=== PATIENT | female | born 1990 | race Caucasian/White ===

== ENCOUNTER 2020-02-05 17:20 | Emergency (ER) | payer SELFPAY ==
[2020-02-05 17:33] VITALS: BP 150/88; PULSE 94; RESP 16; TEMP 37.2; O2SAT 98
--- NOTE | 2020-02-05 17:54 | ED.WOUNDLAC ---
HPI - Wound/Laceration General Chief Complaint: Wound/Laceration Stated Complaint: Cut finger Source: patient History of Present Illness HPI narrative: this is a 29-year-old female that presents with the tip of her thumb laceration more like a flap-type laceration that occurred about 2 to 3 days ago pretty well approximated is up-to-date with her tetanus and is here today because it is mildly gaping although it is currently healing. There is no discharge there is no erythema redness mild tenderness with no erythema and no drainage. No fever or chills. Onset (ago): day(s) Extremity Location: Left: hand ( thumb laceration) Place: home Context: accidental Associated symptoms: none Related Data Home Medications Medication Instructions Recorded Confirmed No Home Medications 02/05/20 02/05/20 Allergies Allergy/AdvReac Type Severity Reaction Status Date / Time No Known Allergies Allergy Verified 02/05/20 17:32 Review of Systems Review of Systems: All systems reviewed & are unremarkable except as noted in HPI and below PMFSH Past Medical History Medical History Patient denies medical problems Exam Const: General: no acute distress HENMT: Head: normal to inspection Eyes: Conjunctivae: conjunctivae normal Pupils: Equal, round and reactive pupils present Chest: Chest palpation & inspection: normal inspection of the chest Resp: Effort & Inspection: normal respiratory effort GI: GI Palp: Yes Soft to palpation Skin: Other: flap type laceration distal end of her left thumb well-approximated Neuro: General: patient oriented x3 and moves all extremities Psych: Mental Status: mental status grossly normal Course Course Emergency Course: applied Dermabond and follow-up with primary care physician Vital Signs Vital signs: Vital Signs Temperature 37.2 C 02/05/20 17:33 Pulse Rate 94 02/05/20 17:33 Respiratory Rate 16 02/05/20 17:33 Blood Pressure 150/88 H 02/05/20 17:33 Pulse Oximetry 98 02/05/20 17:33 Temperature 37.2 C 02/05/20 17:33 Pulse Rate 94 02/05/20 17:33 Respiratory Rate 16 02/05/20 17:33 Blood Pressure 150/88 H 02/05/20 17:33 Pulse Oximetry 98 02/05/20 17:33 Procedures Laceration Laceration 1: Date: 02/05/20 Time: 17:57 Site: upper extremity Side (If applicable): left Size (cm): 2.5 Description: flap Pre-repair: wound explored and irrigated ====== Skin Level ====== Skin layer closed with: dermabond ====== Subcutaneous Layer ====== ====== Muscle Layer ====== ====== Tendon Layer ====== Critical Care Time Critical Care Time Critical Care Time: No Discharge Plan Discharge Clinical Impression: Laceration Patient Disposition: Home, Self-Care Condition: Stable Instructions: Antibiotic Form, Skin Adhesive Care (ED), Laceration (ED) Additional Instructions: follow-up with primary care physician if symptoms persist or worsen. Prescriptions: No Action No Home Medications RF: 0 Follow-up/Referrals: UNKNOWN,DOCTOR [Primary Care Provider] - Time of Disposition: 17:58
== END 2020-02-05 18:09 | disposition home or self-care (01) ==
PROVIDERS: Emergency Provider Emergency Medicine
DX: S61.012A Laceration without foreign body of left thumb without damage to nail, initial encounter (principal); W45.8XXA Other foreign body or object entering through skin, initial encounter
CPT/HCPCS: 12001; 99282

== ENCOUNTER 2020-07-30 02:35 | Emergency (ER) | payer BC, SELFPAY ==
--- NOTE | ~2020-07-30 | XR_ITS ---
EXAMINATION: XR chest 2V DATE: 07/30/2020 03:21 INDICATION: Left mid chest pain. TECHNIQUE: frontal and lateral views of the chest were obtained. COMPARISON: None FINDINGS: The lungs are clear with no focal airspace opacities, pulmonary edema, pleural effusion or pneumothor ax. The cardiomediastinal silhouette is normal. Mild thoracic spondylosis. IMPRESSION: 1. No acute cardiopulmonary disease. Reviewed, dictated and finalized at location A.
[2020-07-30 02:35] VITALS: BP 161/103; PULSE 96; RESP 20; TEMP 36.7; O2SAT 100
--- NOTE | 2020-07-30 02:54 | ECG_ITS ---
Measurements Intervals [place] Rate: 100 P: 66 MD: 135 QRS: 15 QRSD: 94 T: 22 QT: 337 QTc: 435 Interpretive Statements SINUS TACHYCARDIA BORDERLINE T WAVE ABNORMALITY- INFERIOR LEADS BASELINE ARTIFACT- I, II, III, AVL, V1 BORDERLINE ECG Electronically Signed On 07-30-2020 7:44:05 CDT by Jarrell Glass D.O.
[2020-07-30] MEDS: ALPRAZolam (*CRX) 0.5 MG TABLET PO (03:00)
[2020-07-30 03:15] LABS: Basophils Absolute Auto 0.04 K/mm3 (0.00-0.10); Basophils Percent Auto 0.5 % (0.0-1.0); Eosinophils Percent Auto 1.2 % (1.0-6.0); Hematocrit 41.8 % (35.0-49.0); Hemoglobin 14.2 g/dL (12.0-15.0); Immature Granulocyte Absolute 0.02 K/mm3 (0.00-0.00); Immature Granulocyte Percent A 0.2 % (0.0-0.0); Lymphocytes Absolute Auto 2.72 K/mm3 (1.10-4.50); Lymphocytes Percent Auto 32.2 % (18.0-42.0); Mean Corpuscular Volume 88.4 fL (78.0-102.0); Monocytes Absolute Auto 0.53 K/mm3 (0.10-0.90); Monocytes Percent Auto 6.3 % (2.0-11.0); Neutrophils Percent Auto 59.6 % (50.0-70.0); Platelet Count Result 380 K/mm3 (150-420); Red Blood Count 4.73 M/mm3 (4.20-5.40); White Blood Count 8.4 K/mm3 (4.8-10.8)
[2020-07-30 03:25] VITALS: BP 146/93; PULSE 81; RESP 18; O2SAT 96
--- NOTE | 2020-07-30 03:25 | PC.NURSE ---
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
[2020-07-30 03:29] LABS: D Dimer 0.19 mg/L (0.19-0.50)
[2020-07-30 03:31] LABS: Alanine Aminotransferase 30 U/L (14-59); Albumin Level 3.7 g/dL (3.4-5.0); Alkaline Phosphatase 71 U/L (46-116); Anion Gap 11 mmol/L (8-16); Aspartate Amino Transferase 14 U/L (15-37); Bilirubin,Total 0.2 mg/dL (0.00-1.00); Blood Urea Nitrogen 12 mg/dL (7-18); Carbon Dioxide 26 mmol/L (21-32); Chloride 101 mmol/L (98-108); Estimated CRCL calculation 115 ml/min; Estimated Glomerular Filt Rate > 60; Glucose 113 mg/dL (70-99); Lipase 86 U/L (73-393); Osmolality Calculated 286 mOsm/kg (285-295); Potassium 3.9 mmol/L (3.5-5.1); Sodium 138 mmol/L (136-145); Total Protein 6.9 g/dL (6.4-8.2)
[2020-07-30 03:33] LABS: Troponin I < 4.0 ng/L (0.00-60.4)
[2020-07-30 03:57] VITALS: BP 132/95; PULSE 78; RESP 20; TEMP 36.9; O2SAT 95
--- NOTE | 2020-07-30 04:01 | PCAUD ---
dr list given for pt to establish general doctor.
--- NOTE | 2020-07-30 04:01 | ED.CHESTPAIN ---
HPI - Chest Pain General Chief Complaint: Chest Pain Stated Complaint: Chest Pain Source: patient Mode of arrival: ambulatory Limitations: no limitations History of Present Illness HPI narrative: this is a 30 year female presents with chest discomfort has been off and on for the last 5 days but this evening started radiating into her left arm with tingling and tingling in her lower extremities as well patient has a known history of anxiety but has not been on any medication for last 2 to 3 years. Currently there is no shortness of breath no nausea vomiting no diaphoresis patient is a nonsmoker. MD complaint: chest discomfort Onset (ago): day(s) Timing of current episode: episodic Prior episodes: Yes Onset: during rest Pain radiation: left arm Severity: mild Related Data Allergies Allergy/AdvReac Type Severity Reaction Status Date / Time No Known Allergies Allergy Verified 02/05/20 17:32 Review of Systems Review of Systems: All systems reviewed & are unremarkable except as noted in HPI and below PMFSH Past Medical History Medical History Patient denies medical problems Exam Const: General: no acute distress and alert Orientation/consciousness: patient oriented x3 HENMT: Head: normal to inspection Eyes: Conjunctivae: conjunctivae normal Pupils: Equal, round and reactive pupils present EOM: EOMs intact bilaterally Neck: Neck: normal visual inspection, no lymphadenopathy and no meningeal signs Chest: Chest palpation & inspection: normal inspection of the chest Resp: Effort & Inspection: normal respiratory effort Auscultation: clear to auscultation bilaterally Cardio: Rate: regular rate Rhythm: regular rhythm GI: Auscultation: normal bowel sounds : General: Yes no CVA tenderness Back/Spine/Pelvis: Back: no CVA tenderness Skin: General skin exam: normal color Rashes: no rashes Neuro: General: patient oriented x3, moves all extremities, no meningeal signs and no focal motor deficits Extrem: General: normal to inspection and no pedal edema Psych: Mental Status: mental status grossly normal Course Course Emergency Course: Labs and x-ray reviewed with patient along with EKG and patient relieved that it is heart related advised to follow-up with her primary care physician. Vital Signs Vital signs: Vital Signs Temperature 36.7 C 07/30/20 02:35 Pulse Rate 96 07/30/20 02:35 Respiratory Rate 20 07/30/20 02:35 Blood Pressure 161/103 H 07/30/20 02:35 Pulse Oximetry 100 07/30/20 02:35 Temperature 36.9 C 07/30/20 03:57 Pulse Rate 78 07/30/20 03:57 Respiratory Rate 20 07/30/20 03:57 Blood Pressure 132/95 H 07/30/20 03:57 Pulse Oximetry 95 07/30/20 03:57 MDM - Chest Pain Lab Data Result diagrams: 07/30/20 03:09 07/30/20 03:09 Labs: Lab Results 07/30/20 07/30/20 07/30/20 Range/Units 03:09 03:09 03:09 WBC 8.4 (4.8-10.8) K/mm3 RBC 4.73 (4.20-5.40) M/mm3 Hgb 14.2 (12.0-15.0) g/dL Hct 41.8 (35.0-49.0) % MCV 88.4 (78.0-102.0) fL MCH 30.0 (27.0-31.0) pg MCHC 34.0 (32.0-36.0) g/dL RDW 13.0 (11.6-14.4) % Plt Count 380 (150-420) K/mm3 MPV 9.0 L (9.2-11.8) fl Immature Gran % (Auto) 0.2 H (0.0-0.0) % Neut % (Auto) 59.6 (50.0-70.0) % Lymph % (Auto) 32.2 (18.0-42.0) % Gregg % (Auto) 6.3 (2.0-11.0) % Eos % (Auto) 1.2 (1.0-6.0) % Baso % (Auto) 0.5 (0.0-1.0) % Lymph # (Auto) 2.72 (1.10-4.50) K/mm3 Gregg # (Auto) 0.53 (0.10-0.90) K/mm3 Eos # (Auto) 0.10 (0.02-0.50) K/mm3 Baso # (Auto) 0.04 (0.00-0.10) K/mm3 Abs Immat Gran (auto) 0.02 H (0.00-0.00) K/mm3 Absolute Neuts (auto) 5.0 (1.7-7.2) K/mm3 Absolute Nucleated RBC 0.00 (0.00-0.00) K/mm3 Nucleated RBC % 0.0 (0-0.0) % D-Dimer 0.19 (0.19-0.50) mg/L Sodium 138 (136-145) mmol/L Potassium 3.9 (3.5-5.1) mm
== END 2020-07-30 04:09 | disposition home or self-care (01) ==
PROVIDERS: Emergency Provider Emergency Medicine
DX: R07.89 Other chest pain (principal); F41.9 Anxiety disorder, unspecified
CPT/HCPCS: 36415; 71046; 80053; 83690; 84484; 85025; 85380; 93005; 99283; 99284; A9270

== ENCOUNTER 2021-01-05 20:30 | Emergency (ER) | payer BC, SELFPAY ==
[2021-01-05 20:50] VITALS: BP 128/80; PULSE 84; RESP 20; TEMP 37; O2SAT 99
[2021-01-05 21:25] LABS: Basophils Absolute Auto 0.07 K/mm3 (0.00-0.10); Basophils Percent Auto 1.1 % (0.0-1.0); Eosinophils Absolute Auto 0.06 K/mm3 (0.02-0.50); Eosinophils Percent Auto 0.9 % (1.0-6.0); Hematocrit 45.9 % (35.0-49.0); Hemoglobin 15.4 g/dL (12.0-15.0); Immature Granulocyte Absolute 0.01 K/mm3 (0.00-0.00); Immature Granulocyte Percent A 0.2 % (0.0-0.0); Lymphocytes Absolute Auto 3.06 K/mm3 (1.10-4.50); Lymphocytes Percent Auto 47.4 % (18.0-42.0); Mean Corpuscular HGB Conc 33.6 g/dL (32.0-36.0); Mean Corpuscular Hemoglobin 30.9 pg (27.0-31.0); Mean Corpuscular Volume 92.2 fL (78.0-102.0); Mean Platelet Volume 8.4 fl (9.2-11.8); Monocytes Absolute Auto 0.41 K/mm3 (0.10-0.90); Monocytes Percent Auto 6.4 % (2.0-11.0); Neutrophils Absolute Auto 2.8 K/mm3 (1.7-7.2); Platelet Count Result 459 K/mm3 (150-420); Red Blood Count 4.98 M/mm3 (4.20-5.40); Red Cell Distribution Width 13.2 % (11.6-14.4); White Blood Count 6.5 K/mm3 (4.8-10.8)
[2021-01-05 21:43] LABS: Alanine Aminotransferase 40 U/L (14-59); Alkaline Phosphatase 68 U/L (46-116); Anion Gap 8 mmol/L (8-16); Aspartate Amino Transferase 18 U/L (15-37); Bilirubin,Total 0.2 mg/dL (0.00-1.00); Blood Urea Nitrogen 10 mg/dL (7-18); Calcium 9.3 mg/dL (8.5-10.1); Carbon Dioxide 30 mmol/L (21-32); Chloride 106 mmol/L (98-108); Estimated CRCL calculation 110 ml/min; Estimated Glomerular Filt Rate > 60; Glucose 118 mg/dL (70-99); Osmolality Calculated 298 mOsm/kg (285-295); Potassium 3.8 mmol/L (3.5-5.1); Sodium 144 mmol/L (136-145); Total Protein 7.5 g/dL (6.4-8.2)
[2021-01-05 21:57] LABS: Appearance Urine Clear (Clear); Bilirubin Urine Negative (Negative); Color Urine Yellow (Yellow); Glucose Urine UA Negative (Negative); Ketones Urine Trace (Negative); Leukocyte Esterase Ur Negative (Negative); Nitrate Urine Negative (Negative); Protein Urine Negative (Negative); Specific Grav Ur >= 1.030 (1.010-1.020); Urobilinogen Urine 0.2 mg/dL (0.2-1.0)
[2021-01-05] MEDS: HYDROcodone/acetaminophen (*CRX) 10-325 MG TABLET 1 TAB PO (22:05)
[2021-01-05 22:08] LABS: Add Urine Microscopic? YES; Bacteria Urine Trace /hpf; Blood Urine Trace-Intact (Negative); Squamous Epithelial Cell Urine Few /hpf (Few); WBC Urine 0-3 /hpf (0-3)
[2021-01-05 22:09] LABS: Pregnancy On Board Control Positive; Urine Pregnancy Test Negative
--- NOTE | 2021-01-05 22:26 | PC.NURSE ---
Call placed by Dr Summers to [facility] for oncall OB for consult
--- NOTE | 2021-01-05 22:29 | ED.GENADULT ---
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 It started 2 days ago and has been accompanied with some very light vaginal bleeding. She had a Mirena placed a few years ago. She has not had bleeding since that time. She was concerned because this deep midline vaginal/pelvic pain with the first vaginal bleeding in years. She denies any other vaginal discharge, dysuria, hematuria as well as fevers and chills. Related Data Home Medications Medication Instructions Recorded Confirmed No Home Medications 01/05/21 01/05/21 Allergies Allergy/AdvReac Type Severity Reaction Status Date / Time No Known Allergies Allergy Verified 02/05/20 17:32 Review of Systems Constitutional: Constitutional: Reports no additional constitutional complaints Eyes: Eyes: Reports no additional eye complaints ENT: Reports system reviewed and no additional complaints, except as documented Cardiovascular: Cardiovascular: Reports no additional cardiovascular complaints Respiratory: Respiratory: Reports no additional respiratory complaints Gastrointestinal: Gastrointestinal: Reports no additional gastrointestinal complaints Genitourinary: Genitourinary: Reports as per HPI Musculoskeletal: Musculoskeletal: Reports no additional musculoskeletal complaints Integumentary/Breasts: Skin/Breast: Reports system reviewed and no additional complaints, except as docu Neurologic: Reports system reviewed and no additional complaints, except as documented Psychiatric: Psychiatric: Reports no additional psychiatric complaints Endocrine: Endocrine: Reports no additional endocrine complaints Hematologic/Lymphatic: Hematologic/Lymphatic: Reports no additional hematologic/lymphatic complaints Allergic/Immunologic: Allergic/Immunologic: Reports no additional allergic/immunologic complaints [facility] Past Medical History Medical History Patient denies medical problems Exam Const: General: no acute distress and alert Orientation/consciousness: patient oriented x3 Limitations: No altered mental status HENMT: Head: normal to inspection Other: normocephalic, atraumatic Eyes: Conjunctivae: conjunctivae normal Pupils: Equal, round and reactive pupils present Neck: Neck: normal visual inspection Chest: Chest palpation & inspection: normal inspection of the chest Resp: Effort & Inspection: normal respiratory effort Auscultation: clear to auscultation bilaterally Cardio: Rate: regular rate GI: Inspection: non-distended GI Palp: Yes Soft to palpation and No Tenderness to palpation present (GI) : General: Yes bladder normal to palpation and Yes no CVA tenderness External Female Exam: normal external appearance Speculum Exam - Vagina: normal appearance of the vagina and normal vaginal discharge Other: No IUD string visualized. No suprapubic or adnexal tenderness visualized. Back/Spine/Pelvis: Back: no CVA tenderness Skin: General skin exam: normal color Rashes: no rashes Neuro: General: patient oriented x3 and moves all extremities Extrem: General: normal to inspection Psych: Mental Status: mental status grossly normal Course Course Emergency Course: Sarah was evaluated. Labs and UA were normal. Pelvic exam was normal. Dr. Sen was paged at [phone]. After the pelvic exam she was given [place] for the pain. I spoke with Dr. Sen who recommended to follow up with them tomorrow and to get an ultrasound at that time. She was given toradol to help with the pain through the night. Vital Signs Vital signs: Vital Signs Temperature 98.6 F 01/05/21 20:50 Pulse Rate 84 01/05/21 20:50 Respir
--- NOTE | 2021-01-05 23:11 | PC.NURSE ---
Call back from Dr Hare, consulted c Dr Summers and will try to f/u c in his office in next few days. ERP discussing POC c pt.
[2021-01-05] MEDS: KETOROLAC 30 MG/ML VIAL (*BKC) IM (23:15)
[2021-01-05 23:26] VITALS: BP 132/89; PULSE 72; RESP 18; TEMP 36.6; O2SAT 97
== END 2021-01-05 23:27 | disposition home or self-care (01) ==
PROVIDERS: Emergency Provider Family Medicine; PCP Internal Medicine
DX: R10.2 Pelvic and perineal pain (principal)
CPT/HCPCS: 36415; 80053; 81001; 81025; 85025; 96372; 99283; 99284; A9270; J1885

== ENCOUNTER 2021-02-09 21:31 | Emergency (ER) | payer BC, SELFPAY ==
[2021-02-09 21:36] VITALS: BP 148/105; PULSE 81; RESP 16; TEMP 36.7; O2SAT 99
[2021-02-09] MEDS: LORazepam (*CRX) 1 MG TABLET PO (22:12)
--- NOTE | 2021-02-09 22:16 | ED.ALCOHOL ---
HPI - Alcohol General Chief Complaint: Alcohol Stated Complaint: ALCOHOL WITHDRAWL Source: patient Mode of arrival: ambulatory Limitations: no limitations History of Present Illness HPI narrative: Pt has been drinking pretty constant for last 2 weeks. ABout 2 weeks ago she started drinking heavily, with frequent shots. 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 She was trying to quit, but began getting worried she would have a seizure and . So she has been drinking a shot every 2 hours since noon. She wants to quit drinking, but has been struggling for quite sometime with depression and anxiety. She saw her PCP who apparently said she needed to get treatment with a psyc doc. She waited 6 months to get a psyc appointment- but she states the psyc doctor told her all she needs is to loose weight, and she will feel better- She said he was a holistic psyc doctor and didnt prescribe meds. Pt is very anxious and upset complaint: alcohol dependence and desires rehab Last drink: just COIL WINDER REPAIR Chronic alcohol use: No (just started 2 weeks ago) Previous visits for alcohol intoxication: No Recent trauma: No Associated symptoms: denies other symptoms Related Data Allergies Allergy/AdvReac Type Severity Reaction Status Date / Time No Known Allergies Allergy Verified 02/09/21 21:51 Review of Systems Constitutional: Constitutional: Denies chills, Reports fatigue (no sleeping), Denies fever(s) and Denies weakness Eyes: Eyes: Reports no additional eye complaints ENT: Reports system reviewed and no additional complaints, except as documented Cardiovascular: Cardiovascular: Reports no additional cardiovascular complaints Respiratory: Respiratory: Reports no additional respiratory complaints Gastrointestinal: Gastrointestinal: Reports no additional gastrointestinal complaints Musculoskeletal: Musculoskeletal: Reports no additional musculoskeletal complaints Neurologic: Reports system reviewed and no additional complaints, except as documented Comments: hands feel numb Psychiatric: Psychiatric: Reports anxiety, Reports depression, Denies homicidal ideation and Denies suicidal ideation Endocrine: Endocrine: Reports no additional endocrine complaints Hematologic/Lymphatic: Hematologic/Lymphatic: Reports no additional hematologic/lymphatic complaints Allergic/Immunologic: Allergic/Immunologic: Reports no additional allergic/immunologic complaints [facility] Past Medical History Medical History (Updated 02/10/21 @ 02:44 by Nella Sánchez MD) Anxiety Anxiety Patient denies medical problems Social History Social History (Updated 02/09/21 @ 22:26 by Nella Sánchez MD) Tobacco type: e-cigarettes/vaping Alcohol intake: current Substance use: never Living arrangements: with family Additional living arrangements comments: living with her mother in law 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 Gender identity (if verbalized by the patient): Female Exam Const: General: no acute distress and alert Orientation/consciousness: patient oriented x3 HENMT: Head: normal to inspection Eyes: Conjunctivae: conjunctivae normal Pupils: Equal, round and reactive pupils present Neck: Neck: normal visual inspection Chest: Chest palpation & inspection: normal inspection of the chest Resp: Effort & Inspection: normal respiratory effort Auscultation: clear to auscultation bilaterally Cardio: Rate: regular rate Rhythm: regular rhythm GI: GI Palp: Yes Soft to palpation, No Tenderness to palpation present (GI) and No Guarding due to palpation present (GI) : General: Yes no CVA tenderness Back/Spine/Pelvis: Back: no CVA tenderness Skin: General skin exam: normal color, no jaundice and no pallor Rashes: no rashes Neuro: General: patient oriented x3 and moves all extremities Extrem: General: normal to inspection Psych: Appearance: grossly normal Mental Status: mental status grossly normal Affect: Anxio
[2021-02-09] MEDS: SODIUM CHLORIDE 0.9% IV 1,000 ML 999 ML IV CONT (22:33)
--- NOTE | 2021-02-10 00:36 | PC.NURSE ---
pt consumed one 8oz cup of water. pt given paper prescription for medications ordered by MD Sánchez.
[2021-02-10 00:37] VITALS: BP 153/102; PULSE 82; RESP 17; O2SAT 98
== END 2021-02-10 00:35 | disposition home or self-care (01) ==
PROVIDERS: Emergency Provider Emergency Medicine; PCP Internal Medicine
DX: F41.9 Anxiety disorder, unspecified (principal); F10.239 Alcohol dependence with withdrawal, unspecified; F10.229 Alcohol dependence with intoxication, unspecified
CPT/HCPCS: 96360; 96361; 99283; A9270; J7030

== ENCOUNTER 2021-04-06 12:24 | Outpatient (CLI) | payer BC, SELFPAY ==
[2021-04-06 12:39] LABS: Add Urine Microscopic? NO; Appearance Urine Clear (Clear); Bilirubin Urine Negative (Negative); Blood Urine Negative (Negative); Color Urine Light Yellow (Yellow); Glucose Urine UA Negative (Negative); Ketones Urine Negative (Negative); Leukocyte Esterase Ur Negative (Negative); Nitrate Urine Negative (Negative); Protein Urine Negative (Negative); Specific Grav Ur <= 1.005 (1.010-1.020); Urobilinogen Urine 0.2 mg/dL (0.2-1.0)
[2021-04-06 12:53] LABS: Amphetamine Screen Urine Negative (Negative); Barbiturate Screen Urine Negative (Negative); Benzodiazepines Screen Urine Negative (Negative); Cannabinoid Screen Urine Negative (Negative); Cocaine Screen Urine Negative (Negative); Methadone Screen Urine Negative (Negative); Opiate Screen Urine Negative (Negative); Phencyclidine Screen Urine Negative (Negative)
== END 2021-04-06 12:25 | disposition home or self-care (01) ==
LOC: CHSLAB 12:28
PROVIDERS: PCP Internal Medicine
DX: Z01.89 Encounter for other specified special examinations (principal); Z79.899 Other long term (current) drug therapy
CPT/HCPCS: 80307; 81003

== ENCOUNTER 2022-10-21 11:09 | Emergency (ER) | payer SELFPAY ==
[2022-10-21] VITALS (12 sets, daily range): BP systolic 128–163; BP diastolic 74–110; PULSE 61–90; RESP 12–20; TEMP 36.5–36.9; O2SAT 98–100
[2022-10-21] MEDS: SODIUM CHLORIDE 0.9% IV 1,000 ML 999 ML IV CONT (11:45)
[2022-10-21] MEDS: ONDANSETRON INJ 4 MG/2 ML VIAL IV PUSH (11:46)
[2022-10-21] MEDS: chlordiazePOXIDE (*CRX) 5 MG CAPSULE 10 MG PO (11:47)
--- NOTE | 2022-10-21 11:58 | ED.GENADULT ---
HPI - General Adult General Chief complaint: Unspecified Stated complaint: alcohol withdrawl Time Seen by Provider: 10/21/22 11:20 Source: patient Mode of arrival: ambulatory Limitations: no limitations History of Present Illness HPI narrative: this is a 32-year-old female with history of chronic alcoholism presents with some alcohol withdrawal symptoms currently no DTs no loosen a shins but does feel dehydrated on has been nauseated the past 3 weeks with no vomiting and currently no palpitations no chest pain no shortness of breath or abdominal pain. Patient does have a follow-up with clinic on Sunday but wanted to receive help prior to her appointment on Sunday. 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 Gender identity (if verbalized by the patient): Female Exam Const: General: cooperative, comfortable, no acute distress, well developed, alert, awake and Physically active HENMT: Head: normal to inspection Eyes: General: appearance normal, both eyes and all related structures Pupils: Equal, round and reactive pupils present Chest: Chest palpation & inspection: normal inspection of the chest and normal palpation of entire chest wall Resp: Effort & Inspection: normal respiratory effort and able to speak in complete sentences Cardio: Jugular venous distension: no JVD Palpation: normal PMI Rate: regular rate Rhythm: regular rhythm GI: Inspection: normal to inspection Back/Spine/Pelvis: Back: no CVA tenderness Skin: General skin exam: normal color and no rashes or lesions noted Neuro: General: oriented to person, oriented to place, oriented to time, patient oriented x3, gait normal, tone normal and moves all extremities Extrem: General: normal to inspection Psych: Appearance: well kempt Mental Status: mental status grossly normal Speech and movement: Normal speech and movement present Affect: normal affect Course Course Emergency Course: Patient received IV fluids and IV Zofran and received a dose of Librium. Labs reviewed with patient current vitals are stable blood pressure is mildly elevated at 160 3/110 will send prescriptions for Librium to her pharmacy and advised patient to keep all follow-up appointments with some clinic to receive help for her chronic alcoholism. Vital Signs Vital signs: Vital Signs Temperature 36.5 C 10/21/22 11:09 Pulse Rate 90 10/21/22 11:09 Respiratory Rate 16 10/21/22 11:09 Blood Pressure 163/110 H 10/21/22 11:09 Pulse Oximetry 100 10/21/22 11:09 Oxygen Delivery Room Air 10/21/22 11:09 Temperature 36.5 C 10/21/22 11:09 Pulse Rate 83 10/21/22 11:41 Respiratory Rate 18 10/21/22 11:41 Blood Pressure 163/110 H 10/21/22 11:09 Pulse Oximetry 98 10/21/22 11:41 Oxygen Delivery Room Air 10/21/22 11:09 Medical Decision Making Vital Signs Vital Signs: Vital Signs Temperature 36.5 C 10/21/22 11:09 Pulse Rate 90 10/21/22 11:09 Respiratory Rate 16 10/21/22 11:09 Blood Pressure 163/110 H 10/21/22 11:09 Pulse Oximetry 100 10/21/22 11:09 Oxygen Delivery Room Air 10/21/22 11:09 Temperature 36.5 C 10/21/22 11:09 Pulse Rate 83 10/21/22 11:41 Respiratory Rate 18 10/21/22 11:41 Blood
[2022-10-21 12:05] LABS: Alanine Aminotransferase 55 U/L (14-59); Albumin Level 3.3 g/dL (3.4-5.0); Alkaline Phosphatase 77 U/L (46-116); Anion Gap 11 mmol/L (8-16); Aspartate Amino Transferase 47 U/L (15-37); Bilirubin,Total 0.7 mg/dL (0.00-1.00); Blood Urea Nitrogen 10 mg/dL (7-18); Calcium 8.8 mg/dL (8.5-10.1); Carbon Dioxide 26 mmol/L (21-32); Chloride 104 mmol/L (98-108); Estimated Glomerular Filt Rate > 60; Glucose 115 mg/dL (70-99); Osmolality Calculated 292 mOsm/kg (285-295); Potassium 3.4 mmol/L (3.5-5.1); Sodium 141 mmol/L (136-145); Total Protein 6.6 g/dL (6.4-8.2)
[2022-10-21] MEDS: POTASSIUM BICARBONATE 25 MEQ TABEF 50 MEQ PO (12:51)
== END 2022-10-21 13:30 | disposition home or self-care (01) ==
LOC: CHSED 12:06
PROVIDERS: Emergency Provider Emergency Medicine; PCP Internal Medicine
DX: F10.930 Alcohol use, unspecified with withdrawal, uncomplicated (principal); Y90.9 Presence of alcohol in blood, level not specified; F17.290 Nicotine dependence, other tobacco product, uncomplicated
CPT/HCPCS: 36415; 80053; 96361; 96374; 99284; A9270; J2405; J7030

== ENCOUNTER 2023-01-24 12:12 | Emergency (ER) | payer BC, SELFPAY ==
--- NOTE | ~2023-01-24 | XR_ITS ---
EXAMINATION: XR chest 1V portable DATE: 01/24/2023 13:50 INDICATION: Chest pain. Shortness of breath. Dizziness. TECHNIQUE: A single frontal view of the chest was obtained on 2 radiographs. COMPARISON: Chest 2 views 07/30/2020 FINDINGS: There is no pneumonia, pleural effusion, or pneumothorax. The heart size is normal. IMPRESSION: 1. No acute cardiopulmonary disease. Reviewed, dictated and finalized at location A. [employer]
[2023-01-24 12:13] VITALS: BP 153/97; PULSE 91; RESP 18; TEMP 36.6; O2SAT 100
--- NOTE | 2023-01-24 12:37 | ECG_ITS ---
Measurements Intervals [place] Rate: 81 P: 19 CT: 108 QRS: 14 QRSD: 97 T: 9 QT: 369 QTc: 430 Interpretive Statements SINUS RHYTHM WITH SHORT CT INTERVAL DELAYED PRECORDIAL R/S TRANSITION VOLTAGE CRITERIA FOR LVH MINIMAL Q WAVES- HIGH LATERAL LEADS BORDERLINE ECG COMPARED TO ECG 07/30/2020 02:42:08 SINUS RHYTHM NOW PRESENT Electronically Signed On 01-24-2023 12:48:16 FRAME SAMPLE AND PATTERN SUPERVISOR by Jarrell Glass D.O.
[2023-01-24 12:42] VITALS: PULSE 82; RESP 16; O2SAT 100
[2023-01-24 12:45] VITALS: PULSE 81; RESP 16; O2SAT 100
--- NOTE | 2023-01-24 13:02 | ED.DIZZY ---
HPI - Dizziness General Chief Complaint: Dizziness Stated Complaint: unspecified Source: patient Mode of arrival: ambulatory Limitations: no limitations History of Present Illness HPI Narrative: 32-year-old female with a history of alcoholism bipolar disorder, anxiety/ panic attacks presents to the ER with -- upper anterior chest pain radiating to the left shoulder off and on for the past few days. She was seen in the ER in the past for this and it was thought to be secondary to panic attack. -- Patient was started on Topamax 2 weeks ago following which she lost her appetite and has lost around 20 lb. She spoke to her doctor and this medication was recently discontinued. -- Dizziness and lightheadedness -- abdominal pain. pain is located in the epigastrium. The patient has nausea with loss of appetite. No vomiting or diarrhea. No hematemesis or melena. MD elicited complaint: dizziness and lightheadedness Onset (ago): week(s) Timing: gradual onset Severity: moderate Description: lightheadedness Context: change in medication ( Started on Topamax 2 weeks ago which has been discontinued 2 days ago.) History of similar symptoms: Yes Exacerbating factors: nothing Relieving factors: nothing Associated symptoms: nausea, chest pain, malaise and weakness Related Data Allergies Allergy/AdvReac Type Severity Reaction Status Date / Time No Known Allergies Allergy Verified 10/21/22 11:18 Review of Systems Review of Systems: All systems reviewed & are unremarkable except as noted in HPI and below Constitutional: Constitutional: Reports as per HPI, Reports no additional constitutional complaints and Reports weakness Eyes: Eyes: Reports as per HPI and Reports no additional eye complaints ENT: Reports system reviewed and no additional complaints, except as documented, Reports as per HPI and Reports dizziness Cardiovascular: Cardiovascular: Reports as per HPI, Reports no additional cardiovascular complaints and Reports chest pain Respiratory: Respiratory: Reports as per HPI and Reports no additional respiratory complaints Gastrointestinal: Gastrointestinal: Reports as per HPI, Reports no additional gastrointestinal complaints and Reports nausea Genitourinary: Genitourinary: Reports no additional female genitourinary complaints Musculoskeletal: Musculoskeletal: Reports no additional musculoskeletal complaints and Reports as per HPI Integumentary/Breasts: Skin/Breast: Reports system reviewed and no additional complaints, except as docu and Reports as per HPI Neurologic: Reports system reviewed and no additional complaints, except as documented, Reports as per HPI and Reports syncope Psychiatric: Psychiatric: Reports no additional psychiatric complaints, Reports as per HPI and Reports anxiety Endocrine: Endocrine: Reports no additional endocrine complaints and Reports as per HPI Hematologic/Lymphatic: Hematologic/Lymphatic: Reports no additional hematologic/lymphatic complaints and Reports as per HPI Allergic/Immunologic: Allergic/Immunologic: Reports no additional allergic/immunologic complaints and Reports as per HPI [facility] Past Medical History Medical History Anxiety Anxiety Patient denies medical problems Social History Social History Tobacco type: e-cigarettes/vaping Alcohol intake: current Substance use: never Living arrangements: with family Additional living arrangements comments: living with her mother in law 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 Const: General: no acute distress Orientation/consciousness: patient oriented x3 Limitations: no limitations HENMT: Head: normal to inspection Ears: TM's normal bilaterally Face/Nose/Sinus: Normal external nose
[2023-01-24 13:42] LABS: Basophils Absolute Auto 0.05 K/mm3 (0.00-0.10); Basophils Percent Auto 0.7 % (0.0-1.0); Eosinophils Absolute Auto 0.13 K/mm3 (0.02-0.50); Eosinophils Percent Auto 1.8 % (1.0-6.0); Hematocrit 41.9 % (35.0-49.0); Hemoglobin 13.9 g/dL (12.0-15.0); Immature Granulocyte Absolute 0.04 K/mm3 (0.00-0.00); Immature Granulocyte Percent A 0.6 % (0.0-0.0); Lymphocytes Percent Auto 24.9 % (18.0-42.0); Mean Corpuscular HGB Conc 33.2 g/dL (32.0-36.0); Mean Corpuscular Hemoglobin 29.8 pg (27.0-31.0); Mean Corpuscular Volume 89.7 fL (78.0-102.0); Mean Platelet Volume 8.3 fl (9.2-11.8); Monocytes Absolute Auto 0.41 K/mm3 (0.10-0.90); Monocytes Percent Auto 5.7 % (2.0-11.0); Neutrophils Absolute Auto 4.8 K/mm3 (1.7-7.2); Neutrophils Percent Auto 66.3 % (50.0-70.0); Platelet Count Result 479 K/mm3 (150-420); Red Blood Count 4.67 M/mm3 (4.20-5.40); Red Cell Distribution Width 14.4 % (11.6-14.4); White Blood Count 7.2 K/mm3 (4.8-10.8)
[2023-01-24 13:57] LABS: INR 0.9; Prothrombin Time 10.1 Seconds (9.50-12.10)
[2023-01-24 14:06] LABS: Lactic Acid Reflex 1.1 mmol/L (0.4-2.0)
[2023-01-24 14:08] LABS: Alanine Aminotransferase 46 U/L (14-59); Albumin Level 3.9 g/dL (3.4-5.0); Alkaline Phosphatase 79 U/L (46-116); Anion Gap 7 mmol/L (8-16); Aspartate Amino Transferase 21 U/L (15-37); Bilirubin,Total 0.3 mg/dL (0.00-1.00); Blood Urea Nitrogen 10 mg/dL (7-18); Carbon Dioxide 30 mmol/L (21-32); Chloride 105 mmol/L (98-108); Estimated CRCL calculation 84 ml/min; Estimated Glomerular Filt Rate 60; Glucose 126 mg/dL (70-99); Lipase 26 U/L (16-77); Osmolality Calculated 295 mOsm/kg (285-295); Potassium 3.3 mmol/L (3.5-5.1); Sodium 142 mmol/L (136-145); Thyroid Stimulating Hormone 1.13 uIU/mL (0.36-3.74); Total Protein 7.3 g/dL (6.4-8.2); Troponin I < 4.0 ng/L (0.00-60.4)
[2023-01-24 14:11] VITALS: BP 128/87; PULSE 74; RESP 18; O2SAT 100
[2023-01-24 14:43] LABS: Bilirubin Urine Negative (Negative); Blood Urine Negative (Negative); Color Urine Light Yellow (Yellow); Glucose Urine UA Negative (Negative); Ketones Urine Negative (Negative); Leukocyte Esterase Ur 2+ LEU/UL (Negative); Nitrate Urine Negative (Negative); Protein Urine 1+ (Negative); Urobilinogen Urine 0.2 mg/dL (0.2-1.0); pH Urine 8.5 (5.0-8.0)
[2023-01-24 14:44] LABS: Pregnancy On Board Control Positive; Urine Pregnancy Test Negative
[2023-01-24 14:52] LABS: Add Urine Microscopic? YES; Appearance Urine Cloudy (Clear); RBC Urine None seen /hpf (0-2); Squamous Epithelial Cell Urine Few /hpf (Few)
[2023-01-24 14:53] LABS: Amorphous Sediment Urine Moderate; Bacteria Urine 1+ /hpf
[2023-01-24 15:12] VITALS: BP 167/84; PULSE 87; RESP 20; TEMP 37.1; O2SAT 97
[2023-01-24] MEDS: POTASSIUM CHLORIDE 20 MEQ ER TABLET PO (15:16)
--- NOTE | 2023-01-26 12:56 | PC.NURSE ---
Final urine culture results, mixed genital dennis, no growth, no further treatment or action needed at this time. Per dr. calix
== END 2023-01-24 15:19 | disposition home or self-care (01) ==
PROVIDERS: Emergency Provider Internal Medicine Critical Care Medicine; PCP Nurse Practitioner Family
DX: E86.0 Dehydration (principal); N30.00 Acute cystitis without hematuria; E87.6 Hypokalemia; R10.13 Epigastric pain; R07.9 Chest pain, unspecified; F17.290 Nicotine dependence, other tobacco product, uncomplicated; Z79.899 Other long term (current) drug therapy
CPT/HCPCS: 36415; 71045; 80053; 81001; 81025; 83605; 83690; 84443; 84484; 85025; 85610; 87086; 87088; 93005; 99284; A9270

== ENCOUNTER 2023-03-25 08:47 | Emergency (ER) | payer BC, SELFPAY ==
[2023-03-25 08:47] VITALS: BP 147/105; PULSE 83; RESP 18; TEMP 36.4; O2SAT 97
--- NOTE | 2023-03-25 08:55 | ED.LOWEXIN ---
HPI - Extremity Injury (Lower) General Chief Complaint: Wound/Laceration Stated Complaint: stepped on nail Time Seen by Provider: 03/25/23 08:55 Source: patient Mode of arrival: ambulatory Limitations: no limitations History of Present Illness HPI Narrative: patient is a 32-year-old female with a right foot plantar surface wound after stepping on a nail at home. She is missing a small patch of skin. This happened 2 days ago. It is tender and causing pain as well as some deeper skin tissue seen. She is worried about infection. Tetanus shot up-to-date in the past 10 years. complaint: foot injury ( Right plantar surface lateral side) Onset (ago): day(s) (2) Injury: Right: foot Type of Injury: laceration and puncture wound Place: home Severity: moderate Severity scale (1-10): 5 Relieving factors: nothing Exacerbating factors: nothing Context: walking and stepped on nail Associated symptoms: swelling and able to partially bear weight ( due to pain) Other symptoms: none Treatments prior to arrival: bandage Related Data Allergies Allergy/AdvReac Type Severity Reaction Status Date / Time No Known Allergies Allergy Verified 10/21/22 11:18 Review of Systems Review of Systems: All systems reviewed & are unremarkable except as noted in HPI and below Constitutional: Constitutional: Reports no additional constitutional complaints Eyes: Eyes: Reports no additional eye complaints ENT: Reports system reviewed and no additional complaints, except as documented Cardiovascular: Cardiovascular: Reports no additional cardiovascular complaints Respiratory: Respiratory: Reports no additional respiratory complaints Gastrointestinal: Gastrointestinal: Reports no additional gastrointestinal complaints Genitourinary: Genitourinary: Reports no additional female genitourinary complaints Musculoskeletal: Musculoskeletal: Reports no additional musculoskeletal complaints Integumentary/Breasts: Skin/Breast: Reports system reviewed and no additional complaints, except as docu Neurologic: Reports system reviewed and no additional complaints, except as documented Psychiatric: Psychiatric: Reports no additional psychiatric complaints Endocrine: Endocrine: Reports no additional endocrine complaints Hematologic/Lymphatic: Hematologic/Lymphatic: Reports no additional hematologic/lymphatic complaints Allergic/Immunologic: Allergic/Immunologic: Reports no additional allergic/immunologic complaints PMFSH Past Medical History Medical History Anxiety Anxiety Patient denies medical problems Social History Social History Tobacco type: e-cigarettes/vaping Alcohol intake: current Substance use: never Living arrangements: with family Additional living arrangements comments: living with her mother in law 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 Gender identity (if verbalized by the patient): Female Exam Const: General: healthy appearing Nutritional Appearance: well nourished Orientation/consciousness: patient oriented x3 HENMT: Head: normal to inspection Ears: external ears normal Face/Nose/Sinus: Normal external nose present Eyes: Conjunctivae: conjunctivae normal Pupils: Equal, round and reactive pupils present EOM: EOMs intact bilaterally Neck: Neck: normal visual inspection Chest: Chest palpation & inspection: normal inspection of the chest Resp: Effort & Inspection: normal respiratory effort and not labored Auscultation: clear to auscultation bilaterally and no crackles Cardio: Rate: regular rate Rhythm: regular rhythm Heart sounds: no murmurs GI: Inspection: non-distended GI Palp: Yes Soft to palpation, No Tenderness to palpation present (GI) and No Guarding due to palpation present (GI) Auscultation: normal bowel sounds : General: Yes bladder normal to palpation Back/Spine/Pelvis
[2023-03-25] MEDS: NEOMYCIN/POLYMYXIN/BACITRACIN OINTMENT PACKET 1 PACKET TOPICAL (09:34)
== END 2023-03-25 09:38 | disposition home or self-care (01) ==
PROVIDERS: Emergency Provider Emergency Medicine; PCP Nurse Practitioner Family
DX: S91.331A Puncture wound without foreign body, right foot, initial encounter (principal); W45.0XXA Nail entering through skin, initial encounter
CPT/HCPCS: 99283

== ENCOUNTER 2023-09-28 12:33 | Emergency (ER) | payer BC, SELFPAY ==
--- NOTE | ~2023-09-28 | XR_ITS ---
EXAMINATION: XR knee LT min 4V DATE: 09/28/2023 13:17 INDICATION: Left knee injury and pain. TECHNIQUE: 3 views of left knee were obtained. COMPARISON: None. FINDINGS: Bone alignment is normal. No fracture. Joint spaces are normal. There is a small knee joint effusion. IMPRESSION: 1. Small left knee joint effusion. Reviewed, dictated and finalized at location A.
[2023-09-28 12:36] VITALS: BP 124/88; PULSE 84; RESP 18; TEMP 36.3; O2SAT 100
--- NOTE | 2023-09-28 12:36 | ED.LOWEXIN ---
HPI - Extremity Injury (Lower) General Chief Complaint: Extremity Injury, Lower Stated Complaint: left knee pain Source: patient Mode of arrival: ambulatory Limitations: no limitations History of Present Illness HPI Narrative: Patient is a 33-year-old female with a left knee injury 3 days ago. Was walking downstairs in the was a wet spot and she twisted her left knee and left lower extremity. complaint: knee injury ( Left) Onset (ago): day(s) (3) Injury: Left: knee Type of Injury: hyperextension and hyperflexion Place: home Severity: moderate Severity scale (1-10): 5 Relieving factors: immobilization Exacerbating factors: weight bearing, movement and palpation Context: other ( walking down stairs and twisted her left knee) Associated symptoms: snap/pop sensation, swelling and able to partially bear weight Other symptoms: other ( patient also concerned about a UTI today) Treatments prior to arrival: cold therapy Related Data Allergies Allergy/AdvReac Type Severity Reaction Status Date / Time No Known Allergies Allergy Verified 10/21/22 11:18 Review of Systems Musculoskeletal: Musculoskeletal: Reports no additional musculoskeletal complaints Integumentary/Breasts: Skin/Breast: Reports system reviewed and no additional complaints, except as docu Neurologic: Reports system reviewed and no additional complaints, except as documented Psychiatric: Psychiatric: Reports no additional psychiatric complaints Endocrine: Endocrine: Reports no additional endocrine complaints Hematologic/Lymphatic: Hematologic/Lymphatic: Reports no additional hematologic/lymphatic complaints Allergic/Immunologic: Allergic/Immunologic: Reports no additional allergic/immunologic complaints PMFSH Past Medical History Medical History Anxiety Anxiety Patient denies medical problems Social History Social History Tobacco type: e-cigarettes/vaping Alcohol intake: current Substance use: never Living arrangements: with family Additional living arrangements comments: living with her mother in law 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 Gender identity (if verbalized by the patient): Female Exam HENMT: Head: normal to inspection Ears: external ears normal Face/Nose/Sinus: Normal external nose present Eyes: Conjunctivae: conjunctivae normal Pupils: Equal, round and reactive pupils present EOM: EOMs intact bilaterally Neck: Neck: normal visual inspection Chest: Chest palpation & inspection: normal inspection of the chest Resp: Effort & Inspection: normal respiratory effort and not labored Auscultation: clear to auscultation bilaterally Cardio: Rate: regular rate Rhythm: regular rhythm Heart sounds: no murmurs GI: Inspection: non-distended GI Palp: Yes Soft to palpation and No Tenderness to palpation present (GI) Auscultation: normal bowel sounds : General: Yes bladder normal to palpation Back/Spine/Pelvis: Back: no CVA tenderness Skin: General skin exam: normal color Rashes: no rashes Wounds: no wounds Neuro: General: patient oriented x3 Cranial nerves: Yes Nystagmus not present Speech: normal speech Extrem: General: abnormal to inspection Other: left knee is tender to palpation and minimally swollen; multiple maneuver show medial collateral ligament pain on examination but otherwise stable knee Psych: Mental Status: mental status grossly normal Affect: normal affect Attitude: cooperative Course Vital Signs Vital signs: Vital Signs Temperature 36.3 C L 09/28/23 12:36 Pulse Rate 84 09/28/23 12:36 Respiratory Rate 18 09/28/23 12:36 Blood Pressure 124/88 09/28/23 12:36 Pulse Oximetry 100 09/28/23 12:36 Oxygen Delivery Room Air 09/28/23 12:36 Temperature 36.3 C L 09/28/23 12:36 Pulse Rate 84 09/28/23 12:36 Respiratory Rate 18 09/28/23 12:3
--- NOTE | 2023-09-28 13:46 | PC.NURSE ---
pt states neglecting uti, urine collected
[2023-09-28 13:55] LABS: Add Urine Microscopic? YES; Appearance Urine Clear (Clear); Bilirubin Urine 1+ (Negative); Blood Urine Negative (Negative); Color Urine Yellow (Yellow); Glucose Urine UA Negative (Negative); Ketones Urine Negative (Negative); Leukocyte Esterase Ur 1+ LEU/UL (Negative); Nitrate Urine Positive (Negative); Protein Urine Trace (Negative); Specific Grav Ur >= 1.030 (1.010-1.020); Urobilinogen Urine 0.2 mg/dL (0.2-1.0)
[2023-09-28 14:00] LABS: Bacteria Urine 2+ /hpf; Mucus Urine Few /lpf; RBC Urine None seen /hpf (0-2); Squamous Epithelial Cell Urine Moderate /hpf (Few); WBC Urine 31-50 /hpf (0-3)
[2023-09-28 14:38] VITALS: BP 118/96; PULSE 79; RESP 18; O2SAT 100
--- NOTE | 2023-09-30 14:08 | PC.NURSE ---
Final urine culture report: Mixed genital dennis, no further action or treatment needed per ERP Dr. Ho.
== END 2023-09-28 14:38 | disposition home or self-care (01) ==
PROVIDERS: Emergency Provider Emergency Medicine; PCP Internal Medicine
DX: M23.92 Unspecified internal derangement of left knee (principal); N39.0 Urinary tract infection, site not specified; F17.290 Nicotine dependence, other tobacco product, uncomplicated
CPT/HCPCS: 73564; 81001; 87086; 87088; 99283

== ENCOUNTER 2023-10-22 01:42 | Emergency (ER) | payer BC, SELFPAY ==
[2023-10-22 01:53] VITALS: BP 147/102; PULSE 92; RESP 15; TEMP 36.6; O2SAT 100
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
== END 2023-10-22 05:18 | disposition home or self-care (01) ==
PROVIDERS: Emergency Provider Emergency Medicine; PCP Family Medicine
DX: T76.21XA Adult sexual abuse, suspected, initial encounter (principal); F41.9 Anxiety disorder, unspecified; F17.290 Nicotine dependence, other tobacco product, uncomplicated
CPT/HCPCS: 99284

== ENCOUNTER 2023-10-24 22:52 | Emergency (ER) | payer BC, SELFPAY ==
--- NOTE | ~2023-10-24 | CT_ITS ---
Noncontrast CT scan of the left elbow CLINICAL HISTORY: Fracture, prior radial head dislocation TECHNIQUE: Axial noncontrast imaging of the left elbow was performed. Sagittal and coronal reformatte d images were constructed. Dose reduction technique was used on this scan by utilizing automated expo sure control and iterative reconstruction technique. The dose-length product (DLP) was 475.34 mGy-cm. Findings: No dislocation seen currently. There is a transverse minimally displaced fracture through t he base of the coronoid process of the proximal ulna (series 201 images 66-71, series 200 image 74). No other fracture identified. Probable small elbow joint effusion present. IMPRESSION: Acute fracture of the base the coronoid process of the proximal ulna, as detailed above. Reviewed, dictated and finalized at location M. IMPRESSION: Acute fracture of the base the coronoid process of the proximal ulna, as detail ed above.
--- NOTE | ~2023-10-24 | XR_ITS ---
EXAMINATION: XR elbow LT 2V DATE: 10/24/2023 23:17 INDICATION: Left elbow injury. TECHNIQUE: 2 views of left elbow were obtained. COMPARISON: None. FINDINGS: There is posterior dislocation of distal radius with respect to capitellum. There is wideni ng of ulnohumeral joint. There is a fracture of articular surface of capitellum. There is an elbow shawn int effusion. IMPRESSION: 1. Fracture of capitellum. 2. Elbow joint dislocation. 3. Elbow joint effusion. Reviewed, dictated and finalized at location A.
--- NOTE | ~2023-10-24 | XR_ITS ---
Left elbow Technique: AP, oblique, and lateral views were obtained. Clinical History: Post reduction COMPARISON: 10/24/2023 at 11:04 PM Findings: No acute fracture or dislocation is seen. Osseous alignment is anatomic. Joint spaces are p reserved. Probable small joint effusion. Impression: Successful reduction of previously noted radial head dislocation. No dislocation seen currently. No d efinite fracture seen on the current exam. Reviewed, dictated and finalized at location M. Impression: Successful reduction of previously noted radial head dislocation. No dislocatio n seen currently. No definite fracture seen on the current exam.
[2023-10-24 22:52] VITALS: BP 150/118; PULSE 82; RESP 22; TEMP 36.4; O2SAT 99
[2023-10-24] MEDS: HYDROmorphone HCL INJ (*CRX) 1 MG/ML SYR IV PUSH (23:52)
[2023-10-24] MEDS: ONDANSETRON INJ 4 MG/2 ML VIAL IV PUSH (23:52)
[2023-10-25] VITALS (9 sets, daily range): BP systolic 136–161; BP diastolic 93–119; PULSE 70–97; RESP 12–26; TEMP 36.4–36.8; O2SAT 96–100
--- NOTE | 2023-10-25 01:01 | ED.GENADULT ---
HPI - General Adult General Chief complaint: Extremity Injury, Upper Stated complaint: pain to arm, poss dislocation Time Seen by Provider: 10/24/23 23:21 History of Present Illness HPI narrative: Patient is a 33-year-old female who presents to the emergency department this evening due to concern for left elbow dislocation. Patient states that she has dislocated her elbow before just a few days ago and was able to put it back in place but today she could not and states that she is in so much pain, worsen the pain she was in when she dislocated it a few days ago. Patient states that she was walking to her bed when her left knee gave out which unfortunately does that frequently causing her to fall and land on her left elbow. Patient denies hitting her head and denies any additional injuries. She rates her pain at 10/10. No additional symptoms or concerns at this time. Related Data Allergies Allergy/AdvReac Type Severity Reaction Status Date / Time No Known Allergies Allergy Verified 10/22/23 02:05 Review of Systems Review of Systems: All systems are reviewed and are negative unless stated otherwise in the HPI. 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 HEENT: PERRL, no rhinorrhea, no post nasal drip, oropharynx clear. Cardiovascular: Regular rate and rhythm, no murmurs, rubs or gallops, no peripheral edema. Respiratory: Clear to auscultation bilaterally, no tachypnea, no wheezing, no rhonchi, no rubs, no respiratory distress. Abdomen: Soft, nontender, nondistended, no rebound, no guarding, no peritoneal signs. Musculoskeletal: Left elbow deformity and swelling noted, intact left radial and ulnar pulses, intact sensation, patient is neurovascularly intact. Skin: No rashes or petechia, no signs of infection. Neurological: Alert and oriented to person, place, and time. Follows all commands. No focal deficits, speech is clear and fluent. Course Vital Signs Vital signs: Vital Signs Temperature 97.6 F 10/24/23 22:52 Pulse Rate 82 10/24/23 22:52 Respiratory Rate 22 H 10/24/23 22:52 Blood Pressure 150/118 H 10/24/23 22:52 Pulse Oximetry 99 10/24/23 22:52 Oxygen Delivery Room Air 10/24/23 22:52 Temperature 97.9 F 10/25/23 03:00 Pulse Rate 77 10/25/23 03:00 Respiratory Rate 16 10/25/23 03:00 Blood Pressure 142/97 H 10/25/23 03:00 Pulse Oximetry 96 10/25/23 03:00 Oxygen Delivery Room Air 10/25/23 02:34 Procedures Orthopedic Fracture Reduction Fracture #1: Fracture Reduction date: 10/25/23 Fracture Reduction time: 00:30 Time Out Performed: Yes Side: left Fracture Reduction Location: radius Analgesia: procedural sedation Pre-Procedure Neuro Vascular Exam: normal Technique: direct manipulation and traction/counter-traction Post Reduction X-rays Demonstrate: acceptable reduction Post-reduction neuro exam: intact Post-reduction vascular exam: intact Splint Applied: Yes Patient Tolerated Procedure: well Procedural Sedation Procedural Sedation #1: Procedural Sedation Date: 10/25/23 Procedural Sedation Time: 00:30 Procedure: Left elbow reduction Provider Performed: sedation and procedure Informed Consent Obtained: yes Equipment in Room: bag and mask, capnography, quality assurance monitor, crash cart, oxygen, pulse
[2023-10-25] MEDS: SODIUM CHLORIDE 0.9% IV 1,000 ML 999 ML IV CONT (01:21)
--- NOTE | 2023-10-25 01:48 | PC.NURSE ---
EDP Dr. Shepherd administered 60mg Propofol IVP at 0131 and 40mg of Propofol IVP at 0134.
== END 2023-10-25 04:07 | disposition home or self-care (01) ==
PROVIDERS: Emergency Provider Emergency Medicine; PCP Family Medicine
DX: S52.042A Displaced fracture of coronoid process of left ulna, initial encounter for closed fracture (principal); F17.290 Nicotine dependence, other tobacco product, uncomplicated; W18.39XA Other fall on same level, initial encounter
CPT/HCPCS: 24600; 73070; 73080; 73200; 96374; 96375; 99285; A4565; J1170; J2405; J7030

== ENCOUNTER 2024-06-03 09:22 | Emergency (ER) | payer BC, SELFPAY ==
--- NOTE | ~2024-06-03 | XR_ITS ---
XR elbow RT 2V Ordering provider: Amanda Ramsay PA-C History: . pain, fall . Comparison: None. FINDINGS: BONES: Posterior dislocation of the radius and ulna compared to the distal humerus. Bony fragment is seen near to the medial distal humerus. SOFT TISSUES: Elevation of the posterior fat pad. IMPRESSION: Posterior dislocation of the elbow joint with bony fragment seen near to the medial distal humerus. Reviewed, dictated and finalized at location A. IMPRESSION: Posterior dislocation of the elbow joint with bony fragment seen near to the me dial distal humerus.
--- NOTE | ~2024-06-03 | XR_ITS ---
EXAMINATION: XR elbow RT 2V DATE: 06/03/2024 11:13 INDICATION: Postreduction right elbow dislocation TECHNIQUE: Anteroposterior, oblique and lateral views of the right elbow were obtained. COMPARISON: None. FINDINGS: The previously dislocated right elbow joint has been reduced to normal alignment. The previously seen small bone fragment projects over the radial head immediately volar to the coronoid process of the o lecranon with air appears to be flattening of the tip likely representing the donor site for the frac ture fragment. Soft tissues are unremarkable. IMPRESSION: 1. Successful reduction of previously dislocated right elbow dislocation. 2. Minimal residual displacement of a fracture fragment arising from the tip of the coronoid process of the proximal ulna. Reviewed, dictated and finalized at location A.
[2024-06-03 09:23] VITALS: BP 198/127; PULSE 67; RESP 19; TEMP 36.8; O2SAT 100
[2024-06-03] MEDS: fentaNYL CITRATE INJ (*CRX) 100 MCG/2 ML VIAL 50 MCG IV PUSH ×2 (10:27→10:48)
[2024-06-03] MEDS: ONDANSETRON INJ 4 MG/2 ML VIAL IV PUSH (10:27)
[2024-06-03] MEDS: MORPHINE SULFATE (*CRX) 4 MG/ML INJ IV PUSH (10:53)
[2024-06-03 10:56] VITALS: BP 154/118; PULSE 84; RESP 16; O2SAT 100
--- NOTE | 2024-06-03 10:56 | ED.UPPEXIN ---
HPI - Extremity Injury (Upper) General Chief Complaint: Extremity Injury, Upper Stated Complaint: Elbow deformity Time Seen by Provider: 06/03/24 10:20 Source: patient Mode of arrival: EMS Limitations: no limitations History of Present Illness HPI narrative: This is a 34-year-old female that presents to the emergency department for right elbow injury. Reports she tripped and fell onto her right elbow. Swelling, pain, deformity noted to the area. Reports she has dislocated her left elbow previously. Related Data Home Medications ?Medication ?Instructions ?Recorded ?Confirmed ?Last Taken ?Type bupropion HCl 300 mg 24 hr tablet, 300 mg PO QAM 11/09/23 Unknown History extended release (Wellbutrin XL) chlordiazepoxide HCl 25 mg capsule 25 mg PO Q12H PRN 11/09/23 Unknown History clonidine HCl 0.1 mg tablet 0.1 mg PO DAILY 11/09/23 Unknown History dextroamphetamine-amphetamine ER 20 mg PO DAILY 11/09/23 Unknown History 20 mg 24hr capsule,extend release (Adderall XR) mirtazapine 7.5 mg tablet 7.5 mg PO DAILY 11/09/23 Unknown History prazosin 2 mg capsule 2 mg PO QHS 11/09/23 Unknown History Allergies Allergy/AdvReac Type Severity Reaction Status Date / Time No Known Allergies Allergy Verified 06/03/24 09:30 Review of Systems Review of Systems: CONSTITUTIONAL: Denies fever MUSCULOSKELETAL: Reports joint pain, and myalgia. NEUROLOGIC: Denies numbness, or weakness. All systems reviewed & are unremarkable except as noted in HPI and below PMFSH Past Medical History Medical History (Updated 06/03/24 @ 11:44 by Amanda Ramsay PA-C) Weight gain High blood pressure Sleep disorder Depression Anxiety Anxiety Patient denies medical problems Social History Social History (Updated 11/09/23 @ 10:41 by Yancy Warner) Smoking packs per day: 0.5 Smoking cigarettes per day: 10.0 Years smoked: 5 Smoking pack-years: 2.50 Smoking status: Former smoker Tobacco type: e-cigarettes/vaping Smoking end date: 11/08/21 Alcohol intake: current Drinks per week: 7 Substance use: never Living arrangements: with family Additional living arrangements comments: living with her mother in law Occupation/Education: occupation 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 HEAD: Normocephalic, atraumatic. EYES: EOMI. CHEST: No respiratory distress. HEART: Regular rate EXTREMITIES: Decreased active range of motion in the right elbow with obvious deformity. Normal radial pulse. Normal sensation SKIN: Warm, dry, no rash. NEURO: No focal deficits. Alert and oriented x3. PSYCH: Normal mood and affect Course Course Emergency Course: Elbow successfully reduced. Patient placed in splint. Patient updated on her workup. Will be given follow-up with Orthopedics Vital Signs Vital signs: Vital Signs Temperature 98.2 F 06/03/24 09:23 Pulse Rate 67 06/03/24 09:23 Respiratory Rate 19 06/03/24 09:23 Blood Pressure 198/127 H 06/03/24 09:23 Pulse Oximetry 100 06/03/24 09:23 Oxygen Delivery Room Air 06/03/24 09:23 Temperature 98.2 F 06/03/24 09:23 Pulse Rate 84 06/03/24 10:56 Respiratory Rate 16 06/03/24 10:56 Blood Pressure 154/118 H 06/03/24 10:56 Pulse Oximetry 100 06/03/24 10:56 Oxygen Delivery Room Air 06/03/24 09:23 Procedures Orthopedic Joint Reduction Joint #1: Orthopedic Joint Reduction Date: 06/03/24 Orthopedic Joint Reduction Time: 11:42 Time Out Performed: Yes Side: right Joint Reduction Location: elbow Analgesia: other (Fentanyl) Pre-Procedure Neuro Vascular Exam: normal Technique used: traction/counter-traction Post-reduction neuro exam: intact Post-reduction vascular: intact Post Reduction X-Ray Obtained: Yes Post Reduction X-Ray Results: reduced Splint Applied: Yes Patient Tolerated Procedure: well and no complications MDM - Extremity Injury (Upper) MDM Narrative Medical decision making narrative: Patient presents the emergency department for right elbow dislocation status post a fall. Patient is neurovascularly intact. Right elbow x-ray shows a posterior dislocation. This was successfully reduced. Patient placed in a splint. Post reduction x-ray showing successful reduction. Patient is follow-up with orthopedics. She was given warnings to return to the ER Patient is hypertensive, she has known history of high blood pressure. Reports she has not taken her medication today. Instructed to take her medication when she gets home Differential Diagnosis Differential diagnosis: Likely fracture of humerus and other (Elbow dislocation, forearm fracture) Imaging Data Radiologist's impression: ITS Impressions Elbow X-Ray 06/03/24 10:46 IMPRESSION: Posterior dislocation of the elbow joint with bony fragment seen near to the medial distal humerus. Elbow X-Ray 06/03/24 11:14 IMPRESSION: 1. Successful reduction of previously dislocated right elbow dislocation. 2. Minimal residual displacement of a fracture fragment arising from the tip of the coronoid process of the proximal ulna. Critical Care Time Critical Care Time Critical Care Time: No Discharge Plan Discharge Clinical Impression: Dislocation of elbow, right, closed Patient Disposition: Home Condition: Stable Instructions: Elbow Dislocation (ED) Additional Instructions: Return to the emergency department if you experience fever, chest pain, shortness of breath, redness and swelling of your arm, weakness, numbness, or any other symptoms that are concerning to you. Rest. Ice. Wear splint. [id number] pain medication as needed. Prescribed pain medication as needed Follow up with orthopedics Patient Language: Croatian Prescriptions: New hydrocodone-acetaminophen 5-325 mg tablet 1 tablet PO Q6H PRN (Reason: pain) Qty: 20 0RF No Action mupirocin 2 % ointment 1 applic topical BID 7 Days Qty: 15 0RF ciprofloxacin HCl [Cipro] 500 mg tablet 500 mg PO BID 7 Days Qty: 14 0RF tramadol 50 mg tablet 50 mg PO Q8H PRN (Reason: pain) Qty: 20 0RF Rx Instructions: 1-2 tabs per dose hydrocodone-acetaminophen 5-325 mg tablet 1 tablet PO Q8H PRN (Reason: pain) Qty: 7 0RF dextroamphetamine-amphetamine [Adderall XR] 20 mg capsule,extended release 24hr 20 mg PO DAILY mirtazapine 7.5 mg tablet 7.5 mg PO DAILY bupropion HCl [Wellbutrin XL] 300 mg tablet extended release 24 hr 300 mg PO QAM clonidine HCl 0.1 mg tablet 0.1 mg PO DAILY Rx Instructions: 3x DAILY per patient prazosin 2 mg capsule 2 mg PO QHS chlordiazepoxide HCl 25 mg capsule 25 mg PO Q12H PRN Rx Instructions: reported per patient Follow-up/Referrals: Moustapha Summers DO [Primary Care Provider] - Bert Shelley MD [Physician] -
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
== END 2024-06-03 11:59 | disposition home or self-care (01) ==
PROVIDERS: Emergency Provider Physician Assistant; PCP Family Medicine
DX: S53.104A Unspecified dislocation of right ulnohumeral joint, initial encounter (principal); I10 Essential (primary) hypertension; G47.30 Sleep apnea, unspecified; F32.A Depression, unspecified; F41.9 Anxiety disorder, unspecified; W01.0XXA Fall on same level from slipping, tripping and stumbling without subsequent striking against object, initial encounter
CPT/HCPCS: 25600; 73070; 96374; 96375; 99285; A4565; J2270; J2405; J3010